=== PATIENT | male | born 1995 | race Caucasian/White ===

== ENCOUNTER 2016-08-28 16:22 | Emergency (ER) | payer OTHER ==
[~2016-08-28] VITALS: Ht 180.3 cm; Wt 95.3 kg
[~2016-08-28 16:22] MED LIST: ENDOCET 325 MG-1 TA1 PO; FLOVENT HF0.044 MG/A INH; METHYLPHENIDATE27 MG PO; PROAIR HFA0.09 MG/Ac INH
--- NOTE | 2016-08-28 16:58 | ED GENERAL ADULT ---
History of Present Illness General Chief Complaint: General Adult Stated Complaint: SORE THROAT, DIARRHES, COUGH Source: patient Exam Limitations: no limitations Vital Signs & Intake/Output Vital Signs & Intake/Output Vital Signs Date Time Temp Pulse Resp B/P Pulse O2 O2 Flow FiO2 Ox Delivery Rate 08/28 1745 87 127/80 08/28 1626 97.8 94 18 146/87 97 Room Air ED Intake and Output 08/29 0000 08/28 1200 Intake Total Output Total Balance Patient 210 lb Weight Allergies Coded Allergies: NO KNOWN ALLERGIES (10/20/11) Reconcile Medications Codeine Phosphate/Guaifenesi (Codeine-Guaifen 10-100 MG/5 Ml) 10 MG-100 MG/5 ML LIQUID 2 TSP PO Q8 PRN COUGH Triage Note: 20 YEAR OLD MALE HISTORY OF ASTHMA STATES THAT FOR THE PAST 4 DAYS HE HAS COUGH/SORE THROAT AND DIARHEA Triage Nurses Notes Reviewed? yes Onset: Abrupt Duration: day(s): Timing: recent history HPI: 08/28/16 5 PM 20-year-old male presents to the emergency department for cough, diarrhea, sore throat. The patient states he was in his usual state of health until the past 72 hours when he developed a nonproductive cough, diarrhea, and weakness. The onset of the symptoms were abrupt, the duration has been 72 hours, the severity is significant; as his symptoms required him to come to the emergency department for care Past History Travel History Traveled to [place] past 21 day No Medical History Any Pertinent Medical History? 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 No Review of Systems Review of Systems Constitutional: Reports: fever. EENTM: Reports: throat pain. Respiratory: Reports: cough. Denies: short of breath. Cardiovascular: Denies: chest pain. GI: Denies: abdominal pain. Genitourinary: Reports: no symptoms. Musculoskeletal: Reports: no symptoms. Skin: Denies: rash. Neurological/Psychological: Denies: headache. Hematologic/Endocrine: Denies: bruising, bleeding. Immunologic/Allergic: Reports: no symptoms. Physical Exam Physical Exam General Appearance: well developed/nourished, alert, awake, anxious, mild distress Head: atraumatic, normal appearance Eyes: Bilateral: normal appearance, PERRL, EOMI. Ears, Nose, Throat: pharyngeal erythema Neck: normal inspection, supple, full range of motion Respiratory: normal breath sounds, chest non-tender, no respiratory distress Cardiovascular: regular rate/rhythm Peripheral Pulses: 4+ radial (R), 4+ radial (L) Gastrointestinal: soft, non-tender Back: normal inspection Extremities: normal inspection, no edema Neurologic/Psych: no motor/sensory deficits, awake, alert, oriented x 3 Skin: intact, normal color, warm/dry Core Measures ACS in differential dx? No CVA/TIA Diagnosis: No Severe Sepsis Present: No Septic Shock Present: No Progress Differential Diagnoses I considered the following diagnoses in my evaluation of the patient: [Pneumonia , bronchitis, viral syndrome, asthma] QUICK STREP NEGATIVE Plan of Care: Orders Procedure Date/time Status THROAT CULTURE W/QUICK STREP 08/28 1628 Active Initial ED EKG: none Departure Departure Disposition: HOME OR SELF CARE Condition: Stable Clinical Impression Primary Impression: Viral syndrome Referrals: PATIENT HAS NO PRIMARY CARE DR (PCP/Family) Departure Forms: Customer Survey General Discharge Information Prescriptions: Current Visit Scripts Codeine Phosphate/Guaifenesi (Codeine-Guaifen 10-100 MG/5 Ml) 2 TSP PO Q8 PRN COUGH #4 OZ Critical Care Note Critical Care Note Critical Care Time: non-applicable
[2016-08-28] MEDS ORDERED: CODEINE-GUAIFE120 M1 PO (17:01)
[2016-08-28 17:45] VITALS: BP 127/80
== END 2016-08-28 17:45 ==
LOC: ERH 16:22
DX: B34.9 Viral infection, unspecified (principal); Z72.0 Tobacco use

== ENCOUNTER 2016-09-28 11:05 | Emergency (ER) | payer OTHER ==
[~2016-09-28] VITALS: Ht 180.3 cm; Wt 95.3 kg
[~2016-09-28 11:05] MED LIST changes: +CODEINE-GUAIFE120 M1 PO
--- NOTE | 2016-09-28 11:39 | ED HAND/WRIST INJURY COMPLAINT ---
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" Source: patient, family, old records Exam Limitations: no limitations Vital Signs & Intake/Output Vital Signs & Intake/Output Vital Signs Date Time Temp Pulse Resp B/P B/P Pulse O2 O2 Flow FiO2 Mean Ox Delivery Rate 09/28 1114 98.2 80 18 138/84 99 Room Air Allergies Coded Allergies: NO KNOWN ALLERGIES (10/20/11) Reconcile Medications Codeine Phosphate/Guaifenesi (Codeine-Guaifen 10-100 MG/5 Ml) 10 MG-100 MG/5 ML LIQUID 2 TSP PO Q8 PRN COUGH Ibuprofen 600 MG TABLET 1 TAB PO Q6PRN PRN pain with food Oxycodone HCl/Acetaminophen (Percocet 5-325 MG Tablet) 5 MG-325 MG TABLET 1-2 TAB PO Q6P PRN severe pain Triage Note: PT DROPPED A LAWN CHRISTIAN FALL ON HIS RIGHT HAND LAST NIGHT. PT TOOK ADVIL WITH NO PAIN RELIEF. INCREASED SWELLING. PT UNABLE TO MOVE FINGERS. +SENSATION, WARM HAND. Triage Nurses Notes Reviewed? yes Occurred: yesterday Duration: hour(s):, constant, continues in ED Timing: recent history Injury Environment: home Severity: moderate, severe Pain/Injury Location: Right: Hand, 2nd finger, 3rd finger, 4th finger, 5th finger. Context: crush Method of Injury: direct blow Modifying Factors: Improves With: immobilization. Worsens With: movement. 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 He complains of swelling, limited range of movement fingers 2-5 with blood below 5th finger. He is right hand dominant. He denies fever, chills, nausea, vomiting, diarrhea, abdominal pain, chest pain, cough, shortness of breath, dysuria, rash, change in sensory function. Past History Travel History Traveled to [place] past 21 day No Medical History Any Pertinent Medical History? 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 No Review of Systems Review of Systems Constitutional: Reports: no symptoms. EENTM: Reports: no symptoms. Respiratory: Reports: no symptoms. Cardiovascular: Reports: no symptoms. GI: Reports: no symptoms. Genitourinary: Reports: no symptoms. Musculoskeletal: Reports: see HPI, joint pain, joint swelling. Skin: Reports: no symptoms. Neurological/Psychological: Reports: no symptoms. Hematologic/Endocrine: Reports: no symptoms. Immunologic/Allergic: Reports: no symptoms. All Other Systems: Reviewed and Negative Physical Exam Physical Exam General Appearance: well developed/nourished, alert, awake, anxious, mild distress Head: atraumatic, normal appearance Eyes: Bilateral: normal appearance, PERRL, EOMI. Ears, Nose, Throat: normal pharynx, normal ENT inspection, hearing grossly normal Neck: normal inspection, supple Cardiovascular/Respiratory: normal breath sounds, regular rate/rhythm Back: normal inspection, normal range of motion, no vertebral tenderness Shoulder Left: normal range of motion, normal inspection Shoulder Right: normal range of motion, normal inspection Elbow Left: normal range of motion, normal inspection Elbow Right: normal range of motion, normal inspection Forearm Left: normal range of motion, normal inspection Forearm Right: normal range of motion, normal inspection Wrist Left: normal range of motion, normal inspection Wrist Right: normal range of motion, normal inspection Hand Left: normal inspection, normal range of motion Hand Right: bone tenderness, limited range of motion, nail injury, evidence of injury, swelling, tender, 2nd finger, 3rd finger, 4th finger, 5th finger ( subungual hematoma) Reflexes: 2+: bicep (R), bicep (L). Neurologic/Tendon: normal sensation, normal motor functions, normal tendon functions Skin: intact, normal color, warm/dry Lymphatic: no anterior cervical curtis Progress Differential Diagnosis: contusion, fracture Plan of Care: Orders Procedure Date/time Status Durable Medical Equipment 09/28 1218 Active Diagnostic Imaging: Viewed by Me: Radiology Read. Discussed w/RAD: Radiology Read. Radiology Impression: no acute abnormality, no fracture, no dislocation, no foreign body seen Departure Departure Time of Disposition: 1214 Disposition: HOME OR SELF CARE Condition: Stable Clinical Impression Primary Impression: Contusion of hand, right Qualifiers: Encounter type: initial encounter Qualified Code: S60.221A - Contusion of right hand, initial encounter Secondary Impressions: Subungual hematoma of digit of hand Qualifiers: Encounter type: initial encounter Qualified Code: S60.10XA - Contusion of unspecified finger with damage to nail, initial encounter Referrals: PATIENT HAS NO PRIMARY CARE DR (PCP/Family) Departure Forms: Customer Survey General Discharge Information Prescriptions: Current Visit Scripts Ibuprofen 1 TAB PO Q6PRN PRN pain #50 TAB with food Oxycodone HCl/Acetaminophen (Percocet 5-325 MG Tablet) 1-2 TAB PO Q6P PRN severe pain #15 TAB Procedures Nail Procedure Nail Trepanation Location: R 5th finger Method of Drainage: nail cauterized Sterile Dressing Applied? Yes Finger Splint? Yes
--- NOTE | 2016-09-28 12:05 | RADIOLOGY REPORT ---
EXAMINATION: XR HAND, RIGHT CLINICAL INFORMATION: 20-year-old male with pain status post trauma with subungual hematoma at the fifth finger. COMPARISON: Right hand radiographs 04/06/2009 and right wrist radiographs 03/03/2012 TECHNIQUE: AP, lateral, and oblique views of the right hand. FINDINGS: No acute fracture or dislocation. Joint spaces are maintained. No erosion or aggressive osseous destruction. No abnormal soft tissue calcification or radiopaque foreign body identified. IMPRESSION: No acute radiographic abnormality.
[2016-09-28] MEDS ORDERED: PERCOCET 5-3251 EACH PO (12:17)
[2016-09-28] MEDS ORDERED: IBUPROFEN600 M1 PO (12:17)
[2016-09-28 12:28] VITALS: BP 125/79
== END 2016-09-28 12:28 ==
LOC: ERH 11:05
DX: S60.221A Contusion of right hand, initial encounter (principal); S60.151A Contusion of right little finger with damage to nail, initial encounter; X58.XXXA Exposure to other specified factors, initial encounter; Y92.9 Unspecified place or not applicable; Y93.9 Activity, unspecified
CPT/HCPCS: 73130-RT